=== PATIENT | female | born 1965 | race Caucasian/White ===

== ENCOUNTER 2023-12-14 17:38 | Emergency (ER) | payer BC ==
[2023-12-14 18:07] VITALS: BP 180/96; PULSE 61
[2023-12-14] MEDS: Lidocaine 1% with EPINEPHrine 1:100,000 20 ML MDV INJECT ONE (18:14)
== END 2023-12-14 18:20 | disposition home or self-care (01) ==
LOC: LB.ED 17:38
DX: S61.042A Puncture wound with foreign body of left thumb without damage to nail, initial encounter (principal); W45.8XXA Other foreign body or object entering through skin, initial encounter; Z88.0 Allergy status to penicillin
CPT/HCPCS: 10120; 99283-25